=== PATIENT | male | born 1970 | race Caucasian/White ===

== ENCOUNTER 2019-11-20 19:01 | Emergency (ER) | payer BC, SELFPAY ==
--- NOTE | 2019-11-20 19:04 | ED.GENADUL_ITS ---
Discharge Plan Disposition Patient Disposition: HOME Condition: Good Discharge Details Chief Complaint: Orthopedic Clinical Impression: Dislocation closed, finger, Finger fracture Primary Care Provider: Anthony Munoz ED Provider: Swathi Mckeon Home Meds and New Rx's Prescriptions: No Action No Known Home Meds RF: 0 Discharge Instructions Instructions: Finger Fracture (ED) Additional Instructions: Encourage rest, ice, elevation. Tylenol and/or ibuprofen as needed for discomfort. Please continue with ana taping and splint until evaluated by orthopedics. Please avoid heavy lifting. Please call orthopedics to schedule follow-up appointment tomorrow. If you develop any new or worsening symptoms please seek care urgently once again. Referrals: Anthony Munoz MD [Primary Care Provider] - Ced Mayen MD [[facility] STAFF PHYSICIAN] - Discharge Data Discharge Date/Time-TO BE ENTERED AT DEPARTURE: 11/20/19 20:50 Medical Decision Making Patient is a pleasant 49-year-old [id number] male presenting today with chief complaint of deformity to the left ring finger. He reports a prior to arrival he been swinging on a rope swing when he went to let go and his wedding ring caught on the rope. Immediately noted deformity. States that friend did attempt to reduce this without success. Wedding ring was cut off immediately on presentation by nursing staff. Patient does endorse some tingling but no numbness. Denies other injury the time of the incident. No history of fracture or surgery to this digit. On exam, patient is resting comfortably. He does have a notable deformity at the PIP joint most consistent with a dislocation. The finger is deviated to the palmar aspect and medially rotated. He has brisk capillary refill. Sensation is intact. He does have ecchymosis over the PIP joint. Will obtain x-ray. Patient I did discuss risks benefits as well as expected procedural steps of digital block. Patient voiced understanding wished to proceed. Procedure note: Using central technique, a digital block was performed of the left ring finger. 5 cc of 1% lidocaine plain was infiltrated. The sufficiently anesthetized the digit. FINDINGS: Bones/joints: Complete dislocation of the left 4th finger PIP joint. There is anterior dislocation of the middle phalanx. There is a minor avulsion fragment measuring 1.7 mm along the volar aspect of the proximal phalanx head. Soft tissues: Soft tissue swelling left 4th finger. IMPRESSION: 1. Dislocation of the left 4th finger PIP joint. 2. Minor cortical avulsion fragment is seen along the volar aspect of the proximal phalanx head measuring 1.7 mm. Discussed these findings with the patient. Patient discussed her/benefits as well as procedural steps of joint reduction. He voiced understanding and wished to proceed. Finger was easily reduced using countertraction. Ana taping was applied and will perform postreduction x-ray. FINDINGS: Bones/joints: Post reduction of dislocation of the 4th finger PIP joint. This is well aligned. No displaced fracture fragment is evident on current imaging. Soft tissues: Soft tissue swelling IMPRESSION: Post reduction of 4th finger PIP joint dislocation with anatomic alignment of joint space. No displaced fracture fragment evident on current these. Discussed these findings with the patient. Formal metal splint was then applied over the ana taping. Encourage rest, ice, elevation. Tylenol and/or ibuprofen as needed for discomfort. We discussed activities he should avoid. He will follow-up with orthopedics, referral has been sent and patient will call tomorrow to schedule follow-up appointment. He was given return precautions. All his questions and concerns were addressed and he is in agreement this plan. HPI General Mode of arrival: ambulatory . Date/Time Provider Initiated Documentation: 11/20/19 19:04 . Limitations to Documentation: no limitations . Information obtained by: patient and RN notes reviewed . History of Present Illness 49 year old M presents to the emergency department with the chief complaint of Deformity left ring finger, described as mild, with intensity rated at 1. Quality is described as aching, and is localized to the left and upper extremity. Patient reports no radiation. Patient started experiencing this minute(s) and it has been constant. Immobilization improves symptom(s), Movement worsens symptoms . Patient notes no other symptoms.. Patient did receive the following treatments prior to arrival, none Related Data Home Medications Medication Instructions Recorded Confirmed Unknown [No Known Home Meds] 11/20/19 11/20/19 Allergies Allergy/AdvReac Type Severity Reaction Status Date / Time No Known Allergies Allergy Unverified 11/20/19 19:11 Review of Systems Constitutional Constitutional: Reports as per HPI, Denies chills, Denies fever(s), Denies headache(s) and Denies weakness ENT Ears, Nose, Mouth, and Throat: Denies headache(s) Cardiovascular Cardiovascular: Reports as per HPI Respiratory Respiratory: Reports as per HPI and Denies cough Musculoskeletal Musculoskeletal: Reports as per HPI and Reports tingling Integumentary/Breasts Skin/Breast: Reports as per HPI, Denies rash and Denies wounds Neurologic Neurologic: Reports as per HPI, Denies headache(s), Reports tingling and Denies weakness [facility] Medical History (Updated 11/20/19 @ 20:32 by JOHANNY Brown) No pertinent past medical history (Acute) Surgical History (Updated 11/20/19 @ 19:11 by Teresa Merchant) No pertinent past surgical history (Acute) Social History Smoking/Tobacco Use Status: Current every day Tobacco Type: smokeless tobacco Alcohol Intake: current Alcohol Intake frequency: a few times a week Alcohol t ype: beer Drug use: Never Substance use type: does not use Do you feel safe at home: Yes Do you feel safe in your relationship?: Yes Exam Const General: cooperative, healthy appearing, comfortable, no acute distress, well developed and well groomed Nutritional Appearance: average body habitus and well nourished Orientation: alert and awake Resp Effort & Inspection: normal respiratory effort, able to speak in complete sentences and no respiratory distress Cardio Rate: regular rate Rhythm: regular rhythm Skin General skin exam: no rashes or lesions noted Lesions: no lesions Rashes: no rashes Trauma: no lacerations or abrasions Neuro General: patient alert and patient awake Cognition: normal cognition Speech: speech normal Gait: normal gait Motor: muscle tone normal throughout Sensory Exam: no sensory deficits noted Extrem Left upper extremity: normal capillary refill, no joint enlargement, wrist Details: normal to inspection and normal ROM; no tenderness and no swelling and hand Details: abnormal to inspection Details: a deformity Location: of the 4th digit (appears to be dislocated at the PIP joint, bent 90 and IR), normal capillary refill, neurosensory exam normal Details: digital nerve sensory function normal (2 point discrimination intact), tenderness Location: of the 4th digit Location: at the PIP joint, vascular exam Details: radial pulse present and normal capillary refill, swelling Location: of the 4th digit Location: at the PIP joint and ecchymosis Location: of the 4th digit Location: at the PIP joint; ROM of fingers abnormal (unable to move deformed finger), no unusual warmth, no abrasions, no lacerations, no crepitus and no foreign bodies; abnormal to inspection (notable deformity to left ring finger) and ROM limited Psych Appearance: grossly normal and well kempt Mental Status: mental status grossly normal Speech and Movement: speech and movement normal Procedures Orthopedic Joint Reduction Joint #1: Side: left Joint Reduction Location: finger (ring) Analgesia: digital block Local Anesthesia: Lidocaine 1% Amount of anesthesic used (mL): 5 Technique used: traction/counter-traction and direct manipulation Post-reduction neuro exam: intact Post-reduction vascular: intact Post Reduction X-Ray Obtained: Yes Post Reduction X-Ray Results: reduced Splint Applied: Yes Patient Tolerated Procedure: well and no complications
[2019-11-20 19:06] VITALS: BP 143/88; PULSE 71; RESP 20; TEMP 36.6; O2SAT 96
--- NOTE | 2019-11-20 19:15 | DI.RAD_ITS ---
EXAM: XR FINGER LT RING EXAM DATE/TIME: CLINICAL HISTORY: deformity after catching on rope swing. TECHNIQUE: 2D digital imaging was performed. COMPARISON: None. FINDINGS: BONES: There is a 2 mm avulsion fracture fragment anterior to the head of the proximal phalanx of the left ring finger. No bony destructive lesion is seen. JOINTS: There is an anterior and radial dislocation of the PIP joint of the left ring finger. SOFT TISSUE: Soft tissue swelling of the left ring finger. IMPRESSION: 1. Anterior and radial complete dislocation of the PIP joint of the left ring finger. 2. 2 mm avulsion fracture fragment anterior to the head of the proximal phalanx of the left ring fing er. DATA REPOSITORY: RADIATION DOSE DELIVERED:
--- NOTE | 2019-11-20 19:45 | DI.RAD_ITS ---
EXAM: XR FINGER LT RING EXAM DATE/TIME: CLINICAL HISTORY: post reduction. TECHNIQUE: 2D digital imaging was performed. COMPARISON: 11/20/2019. FINDINGS: BONES: The previously discussed fracture fragment is not evident on the current imaging. No bony odalys tructive lesion is seen. JOINTS: There has been successful reduction of the previously noted PIP joint dislocation of the ring finger. SOFT TISSUE: Soft tissue swelling of the left ring finger. IMPRESSION: 1. Successful reduction of the PIP joint dislocation of the ring finger. 2. The previously discussed avulsion fracture fragment is not evident on the current examination. DATA REPOSITORY: RADIATION DOSE DELIVERED:
--- NOTE | 2019-11-20 20:02 | DI.VRAD_ITS ---
PROCEDURE INFORMATION: Exam: XR Left Finger(s) Exam date and time: 11/20/2019 7:47 PM Age: 49 years old Clinical indication: Injury or trauma; Injury history: Rope swing; Initial encounter; Dislocation; Severity not specified; Left; Middle finger; Injury date: 11/20/19 TECHNIQUE: Imaging protocol: XR Left fingers. Views: Minimum 2 views. COMPARISON: No relevant prior studies available. FINDINGS: Bones/joints: Complete dislocation of the left 4th finger PIP joint. There is anterior dislocation of the middle phalanx. There is a minor avulsion fragment measuring 1.7 mm along the volar aspect of the proximal phalanx head. Soft tissues: Soft tissue swelling left 4th finger. IMPRESSION: 1. Dislocation of the left 4th finger PIP joint. 2. Minor cortical avulsion fragment is seen along the volar aspect of the proximal phalanx head measuring 1.7 mm. Dictated and Authenticated by: Erick De Los Santos MD. Ordering:TACO Echevarria MD
--- NOTE | 2019-11-20 20:25 | DI.VRAD_ITS ---
PROCEDURE INFORMATION: Exam: XR Left Finger(s) Exam date and time: 11/20/2019 8:00 PM Age: 49 years old Clinical indication: Other: Post reduction TECHNIQUE: Imaging protocol: XR Left fingers. Views: Minimum 2 views. COMPARISON: CR XR FINGER LT RING 11/20/2019 7:48 PM FINDINGS: Bones/joints: Post reduction of dislocation of the 4th finger PIP joint. This is well aligned. No displaced fracture fragment is evident on current imaging. Soft tissues: Soft tissue swelling IMPRESSION: Post reduction of 4th finger PIP joint dislocation with anatomic alignment of joint space. No displaced fracture fragment evident on current these. Dictated and Authenticated by: Erick De Los Santos MD. Ordering:TACO Echevarria MD
== END 2019-11-20 20:50 | disposition home or self-care (01) ==
LOC: ER 20:36
PROVIDERS: Emergency Provider Physician Assistant; PCP Internal Medicine
DX: S62.615A Displaced fracture of proximal phalanx of left ring finger, initial encounter for closed fracture (principal); W23.1XXA Caught, crushed, jammed, or pinched between stationary objects, initial encounter
CPT/HCPCS: 26775; 99283; 73140

== ENCOUNTER 2024-08-05 00:27 | Outpatient (CLI) | payer OTHER, SELFPAY ==
--- NOTE | 2024-08-05 06:30 | DI.RAD_ITS ---
Exam(s) XR FOOT LT COMPLETE XR FOOT RT COMPLETE EXAM: XR FOOT RT COMPLETE CLINICAL HISTORY: Right foot pain,[id number]. TECHNIQUE: 2D digital imaging was performed. Three views of both feet. COMPARISON: CR XR FOOT LT COMPLETE from 08/05/2024 FINDINGS: BONES: No acute fracture is present. No bony destructive lesion is seen. Bilateral plantar calcaneal spurs. JOINTS: No dislocation present. SOFT TISSUE: Normal. IMPRESSION: Bilateral plantar calcaneal spurs. DATA REPOSITORY: RADIATION DOSE DELIVERED:
== END 2024-08-05 00:47 ==
PROVIDERS: Visit Provider Podiatrist
DX: M79.671 Pain in right foot (principal); M79.672 Pain in left foot
CPT/HCPCS: 73630

== ENCOUNTER 2025-04-02 20:46 | Outpatient (REF) | payer OTHER, SELFPAY ==
[2025-04-02 20:05] LABS: Abs Immature Grans 0.01 10^3/uL (0.0-0.06); HCT 43.6 % (40.0-50.0); HGB 14.7 g/dL (13.5-17.5); Immature Grans % 0.2 %; MCH 32.2 pg (27.0-33.0); MCHC 33.7 % (32.0-36.0); MCV 96 fL (80-95); MPV 9.6 fL (8.0-11.0); Platelet Count 253 10^3/uL (130-400); RBC 4.56 10^6/uL (4.36-5.78); RDW 11.9 % (11.8-14.1); RDW-SD 41.3 fL; WBC 4.72 10^3/uL (4.4-10.8)
[2025-04-02 20:19] LABS: Hemoglobin A1C 5.3 % (<5.7)
[2025-04-02 20:21] LABS: ALT 31 U/L (10-49); AST 29 U/L (<34); Albumin 4.2 g/dL (3.4-5.0); Alkaline Phosphatase 75 U/L (46-116); Anion Gap 5.6 mmol/L (3-11); BUN 18 mg/dL (9-23); Bilirubin, Total 0.70 mg/dL (0.2-1.2); CO2 26.4 mmol/L (20.0-31.0); Calcium 9.0 mg/dL (8.3-10.6); Chloride 107 mmol/L (98-107); Cholesterol 160 mg/dL (<200); Glucose 89 mg/dL (74-106); HDL Cholesterol 48 mg/dL (>40); Potassium 4.5 mmol/L (3.5-5.1); Sodium 139 mmol/L (136-145); Total Protein 7.1 g/dL (5.7-8.2)
[2025-04-03 18:05] LABS: PSA, Screening 0.7 ng/mL (<=3.5)
== END 2025-04-02 20:47 | disposition home or self-care (01) ==
LOC: NCHCN 20:46
DX: Z00.00 Encounter for general adult medical examination without abnormal findings (principal); Z13.6 Encounter for screening for cardiovascular disorders; Z12.5 Encounter for screening for malignant neoplasm of prostate; Z13.1 Encounter for screening for diabetes mellitus
CPT/HCPCS: 80053; 80061; 84153; 83036; 85025